=== PATIENT | male | born 1985 | race Two or more races ===

== ENCOUNTER → 2023-03-18 | Emergency (ER) | payer OTHER ==
[~2023-03-18] VITALS: Ht 188 cm; Wt 109.8 kg
[~2023-03-18] MED LIST: ESCITALOPRAM OX10 MG PO; IBUPROFEN800 MG PO; ORPH100T PO; RELAFEN500 MG
== END | disposition home or self-care (01) ==
LOC: ER 10:56
DX: M54.50 Low back pain, unspecified (principal)

== ENCOUNTER 2023-03-24 11:28 | Emergency (ER) | payer OTHER ==
[~2023-03-24] VITALS: Ht 188 cm; Wt 111.1 kg
== END 2023-03-24 13:15 | disposition home or self-care (01) ==
LOC: ER 11:29
DX: M54.16 Radiculopathy, lumbar region (principal)